=== PATIENT | female | born 1965 | race Hispanic/Latino ===

== ENCOUNTER 2017-05-09 12:04 | Day surgery (SDC) | payer OTHER ==
[2017-05-09] VITALS (8 sets, daily range): BP systolic 130–166; BP diastolic 71–89; PULSE 83–99; RESP 14–17; O2SAT 95–100
[~2017-05-09] VITALS: Ht 157.5 cm; Wt 72.6 kg
[~2017-05-09 12:04] MED LIST: ASPI-973 PO; GLIP5TAB2 PO; INSU100V7 SUBQ; LOVA20TA PO; Lactated Ringer's 1,000 ML IV SCH; METF1000 PO; NORE1TAB89 PO; SERT50TA PO; [UNRECOGNIZED DRUG - CODE] PO
[2017-05-09] MEDS ORDERED: Ondansetron 2 mg/mL 2 mL Inj ONE (12:05)
[2017-05-09] MEDS ORDERED: fentaNYL-PF 50 mCg/mL 2 mL Inj ONE (12:05)
[2017-05-09] MEDS ORDERED: Propofol 10,000 mCg/mL 20 mL Inj ONE (12:05)
[2017-05-09] MEDS ORDERED: Lactated Ringer's 1,000 ML IV ONE ×3 (12:30→14:55)
--- NOTE | 2017-05-09 12:49 | PCM.HPANE ---
Patient Data Surgeon Admitting Provider: Attending Provider:Mally Mercado MD Primary Care Physician:Mounika Nunn MD Other Provider:Shreya Toro Anesthesia Reason for Visit Endometrial Thickening Ht/WT & BMI Height (Feet): 5 Height (Inches): 2 Weight (Kilograms): 72.57 Body Mass Index 29.00 Allergies Coded Allergies: No Known Allergies (Unverified , 05/06/17) Past Anesthesia History Anesthesia History: Denies:: Abnormal Airway, Anesthesia Reactions, Difficult Intubation, Fam Anesthesia Reaction, Fam Malignant Hypertherm, Malignant Hyperthermia Diabetes History Hx Diabetes?: Yes Type of Diabetes: Type II Glycemic Control: Insulin & Oral Medication Medications Hypertension Medication: No Home Meds Incl Beta Festus: No Reported Medications Norethindrone-Ethinyl Estrad (Ortho-Novum)1 Each Tablet1 Each PO DAILY 05/06/17 Aspirin 81 Mg [id number] Mg PO DAILY Ref 0 05/06/17 Glipizide (Glucotrol)5 Mg Tablet5 Mg PO BID 05/06/17 Metformin (Glucophage)1,000 Mg Tablet1,000 Mg PO BID Ref 0 05/06/17 Sertraline HCl (Zoloft)50 Mg [id number] Mg PO DAILY 30 Days Ref 0 05/06/17 Insulin Glargine (Lantus U100 Insulin Vial)100 Unit/Ml Vial10 Unit SUBQ QPM #1 VIAL Ref 0 05/06/17 Lovastatin 20 Mg Rbfieh63 Mg PO HS #30 TABLET Ref 0 05/06/17 Multivitamin/Iron/Folic Acid (Centrum Adults Tablet)18 Mg Iron-400 Mcg Tablet1 Each PO DAILY 05/06/17 Last Time Dose Received No meds taken today History History of ENT Problems?: No HEENT History: Denies:: Abnormal Airway Cataracts Difficult Intubation Dysphagia Glaucoma Hearing Problem Sinus Problem TMJ Denture Type: Partial- Upper Teeth Condition: Missing Teeth Hx of Heart Problems?: No Cardiovascular History: Denies:: AICD Abdominal Aortic Aneurism Atrial Fibrillation Cardiac Surgery Chest Pain Congestive Heart Failure Coronary Artery Disease Edema Heart Murmur Hypertension Irregular Heartbeat Pacemaker Peripheral Vascular Rheumatic Fever Thrombophlebitis Valvular Heart Disease Hx of Respiratory Problem?: No Respiratory History: Denies:: Asthma COPD Chest Surgery Cough Dyspnea Emphysema Hemoptysis Oxygen Administration Pneumonia Pulmonary Embolism Tuberculosis Use of C-PAP Machine Use of Inhalers / NEBS Hx Neurologic Problems?: No Neurological History: Denies:: CVA Multiple Sclerosis Parkinson's Disease Seizures Hx of GI Problems?: Yes Hx of Problems?: No Female Hx: Positive for:: Endometriosis (thickened endometrium current admission problem) Denies:: Currently (tubal) Hx Musculoskeletal Problems?: No Hx of Psycho/Social Problems?: No Hx Surgeries?: Yes (parmjit, tubal) Hx Any Other Health Problems?: Yes Other History: Denies:: Cancer Hx Diabetes: Yes Hx Alcohol Use: NoHx Substance Use: NoHave You Smoked inLast 12 mo: No Stop/Bang P-Blood Pressure: treated: No B- Body Mass Index > 35 kg/m2: No A- Age over 50: Yes N- Neck Large Circumference: No G- Gender Male: No Risk Assessment Category Category 1A: Patient has history of documented sleep apnea, and HAS NOT received any narcotic, sedative or anesthesia administration during this stay. Category 1B: Patient has history of documented sleep apnea, and HAS received any narcotic , sedative or anesthesia administration during this stay Category 2: Patient has SUSPECTED Obstructive Sleep Apnea, and HAS received any narcotic , sedative or anesthesia administration during this stay. Category 3: Patient has SUSPECTED Obstructive Sleep Apnea and HAS NOT received narcotic, sedative or anesthesia administration during this stay. Category 4: Outpatient in Procedural Areas with known sleep apnea or who screen positive for High Risk via the STOP/BANG questionnaire. Exam Exam Vital Signs Vital Signs Date Time Temp Pulse Resp B/P Pulse Ox O2 Delivery O2 Flow Rate FiO2 05/09/17 12:26 36.6 90 14 130/84 95 Room Air General Appearance: Alert, Oriented X3 HEENT/AIRWAY: MP 2, Neck Movement (FROM) Lungs: Clear to Auscultation, Clear to Percussion Heart: Exam Unremarkable, Regular Rate/Rhythm Plan Impression Patient chart reviewed, patient interviewed and anesthestic plan with risks, benefits, and alternatives discussed, and informed consent obtained. ASA Physical Status: ASA2 Mod Systemic Disease Anesthetic Plan: GA Bene/Risks/Altern/Consents: Yes HP Complete Prior to Induction: Yes Alirio Bailey MD May 09, 2017 12:31
[2017-05-09] MEDS ORDERED: Lactated Ringer's 1,000 ML IV SCH (13:32)
[2017-05-09] MEDS ORDERED: Lactated Ringer's 500 ML IV PRN (13:32)
[2017-05-09] MEDS ORDERED: HYDROmorphone 1 mg/mL Inj IVPUSH PRN ×2 (13:35→14:35)
[2017-05-09] MEDS ORDERED: Labetalol 5 mg/mL 4 mL Inj IV PRN (13:35)
[2017-05-09] MEDS ORDERED: Ondansetron 2 mg/mL 2 mL Inj IVPUSH PRN ×2 (13:35→14:35)
[2017-05-09] MEDS ORDERED: Phenylephrine 10,000 mCg/mL Inj IVPUSH PRN (13:35)
[2017-05-09] MEDS ORDERED: Atropine 0.4 mg/mL Inj IVPUSH PRN (13:35)
[2017-05-09] MEDS ORDERED: MetoCLOpramide 5 mg/mL 2 mL Inj IVPUSH PRN (13:35)
[2017-05-09] MEDS ORDERED: fentaNYL-PF 50 mCg/mL 2 mL Inj IVPUSH PRN (13:35)
[2017-05-09] MEDS ORDERED: EPHEDrine Sulfate 50 mg/mL Inj IVPUSH PRN (13:35)
--- NOTE | 2017-05-09 14:29 | PCM.ANEP1 ---
Post Anesthesia PACU Phase 1 Assessment Vital Signs Vital Signs Date Time Temp Pulse Resp B/P Pulse Ox O2 Delivery O2 Flow Rate FiO2 05/09/17 12:26 36.6 90 14 130/84 95 Room Air Anesthetic Administered: GA Level of Alertness: Awake, talking VELARDE's with Equal Strength: Yes Pain: No Nausea or Vomiting: No CV Function & Hydration Stable: Yes Airway Device: Oxygen Delivery: Simple Mask Lungs: Clear to Auscultation, Clear to Percussion PACU Phase 2 Assessment Complications: No Follow up Care: No Patient Instructions Provided: N/A Comments See anesth record for PACU VS> PACU VSS Alirio Bailey MD May 09, 2017 14:29
[2017-05-09] MEDS ORDERED: diphenhydrAMINE 25 mg Capsule PO PRN (14:35)
--- NOTE | 2017-05-09 15:11 | OP ---
[address] [address] OPERATIVE REPORT PATIENT: MAGGI HUGHES : 1965 MR#: [id number] ADMIT: 05/09/2017 JOB ID: [id number] DATE OF SURGERY: 05/09/2017 SURGEON: Mally Mercado M.D. SENIOR PROJECT MANAGER: Cesar Johnson M.D. PREOPERATIVE DIAGNOSIS(ES): A 52-year-old 3, para 3 with four years of menorrhagia. Endometrial stripe is 1.8 cm on ultrasound. POSTOPERATIVE DIAGNOSIS(ES): 1. A 52-year-old 3, para 3 with four years of menorrhagia. Endometrial stripe is 1.8 cm on ultrasound. 2. Submucous fibroid. PROCEDURE: 1. Hysteroscopy D and C. 2. MyoSure myomectomy. COMPLICATIONS: None. PACKS: None. DRAINS: None. CATHETERS: In and out catheter at the beginning of the procedure. Retrieved 50 cc of clear urine. Distention media for the hysteroscopy was normal saline with a deficit of 550 cc at the end of the procedure. INTRAVENOUS FLUIDS: 800 cc of crystalloids. BLOOD LOSS: 100 cc. ANESTHESIA: General endotracheal. SPECIMEN: Removed submucous fibroid, endometrial curettage and cervical curettage all sent to Pathology. FINDINGS: 1. Examination under anesthesia revealed retroverted uterus. No adnexal masses appreciated. 2. Uterus sounded to 9 cm during the surgery. HYSTEROSCOPIC FINDINGS: Visualized left tubal ostia. The right tubal ostia was not visualized due to the location of the submucous fibroid that was originating from 8-11 o'clock position of the endometrium occupying the majority of the uterine cavity incompletely obliterating the right tubal ostia. The fibroid has an intramural component as well but this fibroid was removed until the level of the endometrium. A small polyp was noted at the top of the fibroid, was removed with the fibroid as well. No other masses or abnormalities visualized inside the cavity. PROCEDURE: Risks, benefits and alternatives of the procedure discussed with the patient. Informed consent signed. The patient moved to the operating room with IV running. After general anesthesia was found to be adequate, the patient was placed in dorsal lithotomy position. Examination under anesthesia revealed the above findings. The patient was then prepped and draped in a normal sterile fashion. Weighted speculum inserted into the patient's vagina. Anterior lip of the cervix grasped with a single-tooth tenaculum and the cervix was primed with preop misoprostol so cervix was already dilated up to Hegar dilator #6 and the MyoSure hysteroscope of 6.45 size was introduced without difficulty. Under direct visualization, the above findings were noted. There was difficulty visualizing the entire cavity due to the large fibroid occupying the cavity that was also bleeding from the surface, which made visibility difficult as well. So, the larger MyoSure scope was introduced without difficulty as well, and without need for further dilatation and the cervix was sealed with an additional single-tooth tenaculum to stop the distention and medial leakage and XL MyoSure device was introduced and gradually the fibroid was dissected until the level of the endometrium. Then the scope with the MyoSure removed and cervical curettage followed by sharp endometrial curettage was performed. Second look with the scope and second introduction of the MyoSure confirmed complete excision of the fibroid up to the level of the endometrium. It was noted that the fibroid has an intramural extension, but this was not removed. All instruments removed from patient's vagina. Pitocin 30,000,000 international units were given at the end for hemostasis. Good hemostasis assured at the end of the procedure after removing all instruments. The patient tolerated the procedure well. Sponge, lap, needle, and instrument counts were correct x2. Normal deficit at the end of the procedure was 550 cc normal saline.
--- NOTE | 2017-05-15 17:10 | PATH ---
SURGICAL PATHOLOGY Attending Physician:Mally Mercado MD CASE STATUS: Signed Out PATIENT NAME: MAGGI HUGHES PID: [id number] : 1965 DATE COLLECTED:05/09/2017 00:00 SPECIMEN: 1: Endocervix, Curettage 2: Endometrium, Curettage 3: Uterus, Fibroid (separate surgical procedure) CLINICAL HISTORY: ENDOMETRIAL THICKENING 1). ENDOCERVICAL CURETTAGE 2). ENDOMETRIAL CURETTAGE 3). SUBMUCOUS FIBROID (MYOSURE SPECIMEN) FINAL DIAGNOSIS: 1.ENDOCERVIX, CURETTAGE: FRAGMENT OF ENDOMETRIOID-TYPE ADENOCARCINOMA (SEE COMMENT). STRIPS OF BENIGN ENDOCERVICAL EPITHELIUM/MUCOSA AND LOWER UTERINE SEGMENT ENDOMETRIUM. 2.ENDOMETRIUM, CURETTAGE: HIGH-GRADE MALIGNANCY, CONSISTENT WITH DEDIFFERENTIATED ENDOMETRIAL CARCINOMA (SEE COMMENT). 3."SUBMUCOUS FIBROID (MYOSURE SPECIMEN)": HIGH-GRADE MALIGNANCY, CONSISTENT WITH A DEDIFFERENTIATED ENDOMETRIAL CARCINOMA (SEE COMMENT). [id number] Liz Mejia M.D. 05/15/2017 NOTE: The malignancy identified in specimens 2 and 3 (EMC and myosure specimen, respectively) are similar, with one component consisting of an endometrioid adenocarcinoma, predominately low-grade with extensive squamous differentiation, the latter characterized by a spectrum of squamous metaplasia as well as squamous cell carcinoma. The second component consists of an undifferentiated malignancy characterized by sheets, cords, and small nests of intermediate-sized epithelioid cells with scant to clear cytoplasm, round to ovoid nuclei with coarse chromatin, and sometimes prominent nucleoli. The nested and corded architecture is associated with hyalinized stroma and focal areas of geographic necrosis are present. The endometrioid adenocarcinoma seen in the endocervical curettage (specimen 1) appears to represent the glandular component of this malignancy. The morphologic features of this malignancy are favored to represent an undifferentiated endometrial carcinoma, or in this case, better classified as a dedifferentiated carcinoma, given the presence of endometrioid adenocarcinoma. A panel of immunostains is obtained to aid in more definitive classification, with controls stained appropriately. The tumor shows the following results: Broad spectrum keratin (ANNEL): Uniformly positive on glandular/squamous component; focally positive (weak) on undifferentiated component. PAX-8: Uniformly positive on glandular component only. Estrogen receptor: Uniformly positive on glandular component only. Desmin: Negative. Myogenin: Negative. S100: Focally positive (weak) on undifferentiated component only. These results support the favored interpretation of a dedifferentiated endometrial carcinoma given the low level pattern of expression seen with broad spectrum keratins (ANNEL), negative estrogen receptor, and negative PAX-8 on the undifferentiated component. Additionally, there is no evidence for a smooth muscle sarcomatous (negative desmin) or rhabdomyosarcomatous (negative desmin/myogenin) component. This latter result rules against the possibility of a Malignant Mullerian Mixed Tumor (MMMT). Other features ruling against a MMMT are the absence of a high-grade carcinomatous component, the epithelioid morphology of the undifferentiated component (as opposed to sarcomatoid/spindle cell), and younger age of patient. A rare focus of possible vascular invasion is identified in specimen 3. Also, superficial bundles of myometrium are present in specimen 3 which show involvement by the endometrioid adenocarcinoma. This may represent tangential sectioning of the mucosal/myometrial interface or possibly superficial myometrial invasion. Distinction cannot be made in this particular specimen. The results of this case are verbally discussed by Dr. Mejia with Dr. Mercado's nurse on 05/15/2017 at 3 p.m. Technical Note: *This test was developed and its performance characteristics determined by [facility]. It has not been cleared or approved by the U. S. Food and Drug Administration. The FDA has determined that such clearance or approval is not necessary. This test is used for clinical purposes. It should not be regarded as investigational or for research. GROSS DESCRIPTION: The specimen is received in three formalin filled containers labeled with the patient's name. 1). The specimen is labeled "endocervical curettage" and consists of a scant aggregate of mucoid material and blood which is filtered and entirely submitted in cassettes 1A. 2). The specimen is labeled "endometrial curettage" and consists of a proximately a 1.25 cc aggregate of tissue, mucoid material and blood which is entirely submitted in cassette 2A. 3). The specimen is labeled "submucous fibroid" and consists of multiple portions of [place]juarez tissue which aggregate to 4.0 x 4.0 x 1.0 CM. Rep. sections are submitted in cassettes 3A-3F 05/10/2017DC MICRO DESCRIPTION: See diagnosis. ICD-9 CODES: CPT CODES: 1: 25274 2: 09158 3: 00673, 91100, 82055(5) Electronically Signed Out Liz Mejia M.D., [facility] [address], [place] [address] Technical component performed at [facility], [address], [place], [address]
== END 2017-05-09 23:59 | disposition home or self-care (01) ==
LOC: SAS 12:04
PROVIDERS: ATTEND Obstetrics & Gynecology
PROC: 0UDB7ZX Extraction of Endometrium, Via Natural or Artificial Opening, Diagnostic (ICD-10-PCS; 2017-05-09)
PROC: 0UB98ZZ Excision of Uterus, Via Natural or Artificial Opening Endoscopic (ICD-10-PCS; principal; 2017-05-09 13:00)
DX: D25.0 Submucous leiomyoma of uterus (principal); N92.0 Excessive and frequent menstruation with regular cycle; E11.9 Type 2 diabetes mellitus without complications; Z79.4 Long term (current) use of insulin; Z79.84 Long term (current) use of oral hypoglycemic drugs
CPT/HCPCS: 58120; 58561; J2405; J3010; J7120

== ENCOUNTER → 2017-06-11 | Day surgery (SDC) | payer OTHER ==
[~2017-06-11] VITALS: Ht 152.4 cm; Wt 72.6 kg
[~2017-06-11] MED LIST changes: +0.9% Sodium Chloride 1,000 ML IV PRN; -GLIP5TAB2 PO; -INSU100V7 SUBQ; -LOVA20TA PO; -Lactated Ringer's 1,000 ML IV SCH; -NORE1TAB89 PO; +Sodium Chloride LOK Flush 10 mL Syringe IV PRN; +fentaNYL-PF 50 mCg/mL 2 mL Inj IVPUSH PRN
[2017-06-11 08:13] VITALS: BP 150/89; PULSE 75; RESP 16; O2SAT 98
[2017-06-11 09:28] VITALS: BP 118/69; PULSE 64; RESP 16; O2SAT 97
[2017-06-11 09:38] VITALS: BP 124/97; PULSE 75; RESP 14; O2SAT 99
[2017-06-11 09:46] VITALS: BP 125/78; PULSE 62; RESP 16; O2SAT 99
--- NOTE | 2017-06-11 10:09 | ENDO ---
[address] [address] ENDOSCOPY PROCEDURE PATIENT: MAGGI HUGHES : 1965 MR#: [id number] ADMIT: 06/11/2017 JOB ID: [id number] DATE: 06/11/2017 PRIMARY PROVIDER: Mounika Nunn MD PROCEDURE: Colonoscopy with hot snare polypectomy, tattoo placement, and biopsies. INDICATIONS: A 52-year-old female with a positive FIT. EQUIPMENT: PCF-H180AL SEDATION: 1. Versed 5 mg. 2. Fentanyl 100 mcg. COMPLICATIONS: None identified. BOWEL PREPARATION: Very adequate. PROCEDURE INFO: After the risks and benefits were explained, written and verbal informed consent was obtained. The patient was brought into the endoscopy suite and placed into the left lateral decubitus position. Sedation was achieved as above. Digital rectal examination accomplished. No significant pathology appreciated. The scope was introduced into the rectum and advanced to the cecum as identified by the appendiceal orifice and ileocecal valve. The terminal ileum was briefly accessed. The scope was slowly withdrawn to carefully examine the mucosa for any defects or lesions. Multiple direct views were made through the dentate line for exclusion of pathology. The colon was decompressed. The scope removed from the patient who tolerated the procedure well. FINDINGS: The terminal ileum was normal. There was some mild inflammation seen diffusely in the rectum of uncertain etiology. It is unclear if this was prep artifact or a more chronic process. Biopsy was therefore taken for exclusion of chronic proctitis. Otherwise, no inflammatory features were identified throughout. There was a large polyp in the ascending colon approximately two folds distal to the ileocecal valve. This was photographed extensively. The polyp was in its greatest dimension perhaps about 3 cm. About 2 cm of this polyp was obviously polypoid. The remainder was low-profile sessile. We attempted to remove the polypoid component of this polyp using a jumbo snare. Unfortunately, the snare did not seem to be able to come through the last fibrous component of this polyp in spite of excessive use of cautery and even pure cut. Maximum manual pressure was also performed. We ended up having to release the polyp with the jumbo snare, swapped this out for a 2 cm stiff round snare, and we ran into the exact same problem. It seemed that on both of these attempts the plastic housing was not strong enough to withstand the forces being generated at the tip and would not allow the snare to finally resect the last fibrous component. We therefore released the polyp and there were no significant hemorrhagic complications. I put a small tattoo in just distal to the polyp in the ascending colon. We then took a couple of cold biopsy forceps bites out of the top of the polyp for histopathologic evaluation. ENDOSCOPIC DIAGNOSES: 1. Large ascending colon polyp. 2. Possible minimal proctitis. RECOMMENDATIONS: 1. Await histopathology. 2. If there are any concerning histologic features, such is high-grade dysplasia or adenocarcinoma in situ then surgical consultation will be required. 3. On the other hand, if histology is reassuring I would like to repeat colonoscopy in approximately 2-3 months for confirmation that the polypoid structure has entirely sloughed off. At that time we would then address the residual sessile component of this polyp that were not touched today.
--- NOTE | 2017-06-13 16:30 | PATH ---
SURGICAL PATHOLOGY Attending Physician:Hilton Palomares CASE STATUS: Signed Out PATIENT NAME: MAGGI HUGHES PID: [id number] : 1965 DATE COLLECTED:06/11/2017 22:01 SPECIMEN: 1: Colon, Polyp 2: Rectum, Biopsy CLINICAL HISTORY: 1). ASCENDING POLYP X 1 2). RECTAL BIOPSY FINAL DIAGNOSIS: 1. Ascending Colon Polyp, Biopsies: Superficial fragments of tubulovillous adenoma. Negative for high-grade dysplasia. 2. Rectum, Biopsy: Colorectal mucosa with no diagnostic abnormality. Negative for active inflammation, granulomata, dysplasia or malignancy. ICD10: D12.2 NOTE: As part of routine director supplier quality, Dr. Reza has reviewed part 1 of this case and agrees with the above diagnosis. GROSS DESCRIPTION: The specimen is received in two formalin filled containers labeled with the patient's name. 1). The specimen is labeled "ascending polyp" and consists of 5 portions of tissue which aggregate to 0.3 x 0.2 x 0.2 CM. The specimen is entirely submitted in cassette 1A. 2). The specimen is labeled "rectal" and consists of a 0.2 x 0.2 x 0.2 CM portion of tissue which is entirely submitted in cassette 2A. 06/11/2017[place] ICD-9 CODES: CPT CODES: 1: 57724 2: 12957 Electronically Signed Out Domenico Montague MD, Ph.D. [facility], [place] [address] Technical component performed at [facility], [address] [place] [address] Ave[address], [place], [address]
== END | disposition home or self-care (01) ==
LOC: END 00:13
PROVIDERS: ATTEND Internal Medicine Gastroenterology
DX: D12.2 Benign neoplasm of ascending colon (principal); K59.00 Constipation, unspecified; E11.9 Type 2 diabetes mellitus without complications; Z79.84 Long term (current) use of oral hypoglycemic drugs; Z79.82 Long term (current) use of aspirin
CPT/HCPCS: 45380; 45381; 99153; G0500; J2250; J3010; J7030